=== PATIENT | male | born 1940 | race Caucasian/White ===

== ENCOUNTER 2018-08-23 12:12 | Emergency (ER) | payer MEDICARE, OTHER ==
[2018-08-23 12:37] LABS: ADD MAN DIFF? NO
[2018-08-23 12:38] LABS: WHITE BLOOD COUNT 7.9 10^3/ul (4.8-10.8)
[2018-08-23 12:38] LABS: BASOPHILS % 0.4 % (0.0-2.0); EOSINOPHILS # 0.1 10^3/ul (0.0-0.5); EOSINOPHILS % 1.3 % (0.0-7.0); HEMATOCRIT 46.5 % (42.0-52.0); HEMOGLOBIN 14.7 g/dl (14.0-18.0); LYMPHOCYTES # 1.7 10^3/ul (0.8-2.9); MEAN CORPUSCULAR HGB CONC 31.6 g/dl (32.0-37.0); MEAN CORPUSCULAR VOLUME 85.5 fl (82.0-101.0); MEAN PLATELET VOLUME 9.8 fl (7.4-10.4); MONOCYTE # 0.9 10^3/ul (0.3-0.9); NEUTROPHIL # 5.2 10^3/ul (1.6-7.5); NEUTROPHILS % 65.9 % (39.0-77.0); PLATELET COUNT 253 10^3/UL (140-415); RED BLOOD COUNT 5.44 10^6/ul (4.70-6.10); RED CELL DISTRIBUTION WIDTH 13.2 % (11.5-14.5)
[2018-08-23 12:57] LABS: ANION GAP 9 (5-13); BLOOD UREA NITROGEN 22 mg/dl (7-20); CALCIUM 8.9 mg/dl (8.4-10.2); CARBON DIOXIDE 30 mmol/L (21-31); CHLORIDE 101 mmol/L (97-110); CREATININE 1.23 mg/dl (0.61-1.24); GLUCOSE 118 mg/dl (70-220); POTASSIUM 3.9 mmol/L (3.5-5.1); SODIUM 140 mmol/L (135-144)
[2018-08-23 13:09] LABS: TROPONIN-I < 0.012 ng/ml (0.000-0.120)
== END 2018-08-23 15:21 | disposition home or self-care (01) ==
LOC: E/R 12:12
DX: I10 Essential (primary) hypertension (principal); Z79.82 Long term (current) use of aspirin
CPT/HCPCS: 36415; 71045; 80048; 82962; 84484; 85025; 93005; 99285-25